=== PATIENT | male | born 1945 | race Caucasian/White ===

== ENCOUNTER 2017-01-14 23:46 | Observation (INO) | payer MEDICARE ==
[~2017-01-14] VITALS: Ht 172.7 cm; Wt 78.2 kg
[~2017-01-14 23:46] MED LIST: IBUPROFEN400 MG
[2017-01-14] MEDS ORDERED: GABAPENTIN300 MG PO (23:52)
[2017-01-14] MEDS ORDERED: IBUPROFEN200 M1 PO (23:55)
[2017-01-14] MEDS ORDERED: ACETAMINOPHEN325 M1 PO (23:56)
--- NOTE | 2017-01-15 07:31 | NUR ---
BEDSIDE REPORT RECEIVED FROM JAYNA GABRIEL. PT SLEEPING, SNORING, SPO2 94% ON 2L NC. PT SLEEPING ON COUCH IN ROOM. WILL CONTINUE TO MONITOR.
--- NOTE | 2017-01-15 08:33 | NUR ---
DR TEE WAS IN ROOM TO EVALUATE PATIENT AND DISCUSS PLAN OF CARE. PATIENT IS VERY DROWZY FROM PHENERGAN THAT WAS ADMINISTERED EARLIER BY PRINTED FORMS PROOFREADER NURSE. PATIENT RESPONDED TO STIMULATION, OPENED HIS EYES AND MOANED WHEN TAKING TO. PATIENT WENT BACK TO SLEEP. MD DISCUSS WITH ABOUT THE POSSIBLITY FOR SURGERY TODAY. MD WILL BE BACK WHEN PATIENT IS AWAKE TO EVALUATE AND DISCUSS PLAN OF CARE WITH HIM. PATIENT SAT 96% ON RA, HR 80-90. RR EVEN UNLABORED
--- NOTE | 2017-01-15 09:06 | NUR ---
PT MORNING ASSESSMENT COMPLETE. PT DROWSY FROM MEDICATION, AROUSES TO VOICE AND TOUCH. PT BOWEL TONES HYPOACTIVE X 4. PALPATED ABDOMEN, PT DOES NOT REACT OR AWAKE TO PALPATION. PT ON 2L O2 NC SPO2 93%, HR 100. IVF INFUSING IN LEFT WRIST. PT DOES NOT ANSWER QUESTIONS, IMMEDIATELY BACK TO SLEEP, SNORING. PT AND FRIENDS PRESENT IN ROOM. PT HAS CALL LIGHT AND EMESIS BAG IN REACH, WILL CONTINUE TO MONITOR.
--- NOTE | 2017-01-15 11:05 | NUR ---
IN PT'S ROOM TO CHECK ON PT. PT AROUSABLE TO VOICE AND TOUCH, PT CONTINUES TO BE DROWSY, BACK TO SLEEP IMMEDIATELY. FRIEND PRESENT IN ROOM. INSTRUCTED TO MAKE SURE PT DOES NOT GET UP WITHOUT HELP, CANDICE ARAIZA STATED THAT PT FELL ASLEEP WHILE TRYING TO GET TO TOILET, FALL RISK, BED ALARM IS SET. IVF INFUSING AT 125 ML/HR. WILL CONTINUE TO MONITOR.
--- NOTE | 2017-01-15 11:45 | NUR ---
NURSE IN ROOM
--- NOTE | 2017-01-15 11:55 | NUR ---
ANSWERED CALL LIGHT, ASSITED PT TO STAND WITH CANDICE RAI. PT DROWSY, FALLS ASLEEP WHILE STANDING, USING URINAL. PT ABLE TO VOID 150 ML URINE, CONCENTRATED. PT VIJAY HELPFUL KEEPING PT AWAKE. PT BACK TO BED, INSTRUCTED FAMILY TO USE CALL LIGHT AND FOR PT NOT TO GET UP ALONE. PT GRIMACING HE LAID DOWN, PT UNABLE TO RATE PAIN, BACK ASLEEP. WILL CONTINUE TO MONITOR.
--- NOTE | 2017-01-15 13:40 | NUR ---
PT OFF FLOOR WITH SURGERY RN.
--- NOTE | 2017-01-15 15:33 | NUR ---
01/15/17 1533 Humaira Rubio 1523 - PT ARRIVED TO PACU. NOT YET RESPONDING TO QUESTIONS. PT MAINTAINING OWN AIRWAY. NAIF DRAIN IN PLACE.
--- NOTE | 2017-01-15 16:20 | NUR ---
PT ARRIVES BACK TO MED SURG FLOOR. BEDSIDE REPORT RECEIVED FROM JAYNA VALENTINE. PT VS STABLE, WITH ELEVATED TEMPERATURE OF 99.5. PT HAS THREE LAP SITES WITH STERI STRIPS. NAIF DRAIN DRAINING SEROUS FLUID. PT NOT VERBALIZING ANY PAIN AT THIS TIME. GAVE PT MOUTH SWABS. PT AT BEDSIDE SWABBING PT MOUTH, FAMILY IN ROOM.
--- NOTE | 2017-01-15 17:08 | NUR ---
PT ASSESSMENT COMPLETE. PT ALERT, ORIENTED X 3. PT NOT VERBALIZING MUCH, ONE WORD RESPONSES TO QUESTIONS. PT STATING 0/10 PAIN AT REST. PT DENIES NAUSEA. PTS LUNGS CLEAR THROUGHOUT. PT COUGHING. PT OFFERED ICE AND REQUESTED COFFEE. DRESSING ON NAIF DRAIN CHANGED, LEAKING SEROUS FLUID. 70 ML EMPTIED FROM NAIF DRAIN. LAP SITES WITH SCANT SEROSANGUINOUS DRAINAGE. PT AT BEDSIDE, FAMILY PRESENT IN ROOM. CALL LIGHT GIVEN TO PT. D5LR INFUSING AT 125 ML/HR. PT UNABLE TO URINATE WHEN STOOD UP. PT UP TO CHAIR. WILL CONTINUE TO MONITOR.
--- NOTE | 2017-01-15 18:06 | NUR ---
LAB IN PT ROOM DRAWING BLOOD. PT TEMPERATURE 98.8 TEMPORAL AT THIS TIME. ASSISTED PT BACK TO BED. NAIF DRAIN EMPTIED, 60 ML SEROUS FLUID DRAINED. PT CRINGING HE LYES DOWN, DOES NOT STATE PAIN WHEN ASKED. AT BEDSIDE. CALL LIGHT IN REACH.
--- NOTE | 2017-01-15 18:32 | NUR ---
PT OUT OF ROOM. COMPLETED THIRD SET OF VITALS, ORAL TEMPERATURE 97.9. PT VERY DROWSY, SNORING, SPO2 94% ON 2L NC. PT AWAKES WITH TALKING AND BACK TO SLEEP. BP 129/66, HR 93. PT HAS CALL LIGHT. WILL CONTINUE TO MONITOR. PT WAS ABLE TO EAT, PUDDING, JELLO, DRINK COFFEE.
--- NOTE | 2017-01-15 18:34 | NUR ---
PT ARRIVED BACK FROM SURGERY THIS AFTERNOON AT 1620. PT HAD 3 LAP SITES WITH STERI STRIPS AND NAIF DRAIN DRAINING SEROUS FLUID. DRAIN EMPTIED X 2 WITH 70 ML AND 60 ML ON MED SURG. PT CONTINUES TO RECEIVE IVF. PT ALERT AND ORIENTED X 3. CONTINUES TO BE DROWSY, ANSWERS QUESTIONS, BUT BACK TO SLEEP. PT HAS NOT URINATED SINCE SURGERY. LUNGS CLEAR THROUGHOUT. PT ON OXYGEN BY NC AT 2L. PT HAS NOT STATED PAIN SINCE ARRIVING TO FLOOR, DENIES NAUSEA. TOLERATING FOOD WELL.
--- NOTE | 2017-01-15 19:35 | NUR ---
RECIEVED REPORT FROM DAY SHIFT NURSE. PT RESTING IN BED, AT BEDSIDE. PT VODIED ABOUT 50CC...BLADDER SCAN PERFORMED WITH PVR OF 324CC. PT DENIES NEEDS AT THIS TIME. CALL ELLIS IN REACH. IVF INFUSING W/O DIFFICULTY.
--- NOTE | 2017-01-15 19:40 | NUR ---
PT RATES PAIN 4/10 WITH MOVEMENT AND WOULD LIKE PAIN MEDICATION. 1 TAB PERCOCET ADMINISTERED. PT VOIDED ANOTHER 75CC. CALL ELLIS IN REACH.
--- NOTE | 2017-01-15 20:00 | NUR ---
rESTING IN BED QUIETLY WATCHING TV AND IS AT THE BEDSIDE.
--- NOTE | 2017-01-15 20:15 | NUR ---
PT SLEEPING. VOIDED ANOTHER 100CC. AT BEDSIDE.
--- NOTE | 2017-01-15 22:00 | NUR ---
RESTING EYES CLOSED AND RESPIRATIONS ARE EVEN IN REGULAR.
--- NOTE | 2017-01-16 00:03 | NUR ---
PATIENT RESTING QUWTLY ON HIS BACK IN BED SNORING. HIS IS SLEEPING ON THE COUCH.
--- NOTE | 2017-01-16 02:25 | NUR ---
PATIENT WAS SLEEPING WHEN WE WENT IN AT 0205 TO TAKE VITAL SIGNS, HE THEN USED THE REST ROOM AND HIS ABD PAIN HAD INCREASED FROM 3/10 TO 7/10 SO HE WAS GIVEN A PAIN PILL.
--- NOTE | 2017-01-16 04:14 | NUR ---
PATIENT RESTING QUIETLY EYES CLOSED BREATHS EVEN AND UNLABORED. DOES NOT APPEAR TO BE IN DISCMFORT.
--- NOTE | 2017-01-16 08:04 | NUR ---
PATIENT SITTING UP IN BED. IN ROOM. WHITEBOARD UPDATED. PUT OUT AM CARE ITEMS IN BATHROOM. NOT ABLE TO SHOWER YET, SO TOLD HIM TO CALL IF HE WANTED A BEDBATH OR NEEDED HELP. SAID HE WOULD AFTER BREAKFAST.
--- NOTE | 2017-01-16 08:23 | NUR ---
up in bed, eating, no c/o pain at this time, abd 3 dressing intact, beatris draining reddish drainage, ivf infusing, no c/o pain at this time. in room
--- NOTE | 2017-01-16 11:20 | NUR ---
Dr Manzo in room assessing pt
--- NOTE | 2017-01-16 12:32 | NUR ---
Pt IVF SL, ambulating hallways with one assist, tolerating well
--- NOTE | 2017-01-16 17:10 | NUR ---
Pt abd 3 surgical lap sites intact. NAIF on right side, dressing changed, slight seroussanguineous drainage, decreased sanguineous drainaje in NAIF this shift. approx 55cc since 0600 am. Abd tender, firm at lower quads and softer upper quads, HEA, burping, but stated not passing gas rectally yet. Pt on reg diet. tolerating fluids and food w/o problems, no n/v. Was medicated with Naranjito Naranjito c/o abd pain. SL at this time. Has walked around the [facility] [place] down to CCU and back several times, has tolerated well. in room. Pt continues on observation status.
--- NOTE | 2017-01-16 19:36 | NUR ---
RECIEVED REPORT FROM DAY SHIFT NURSE. PT RESTING IN BED. AT BEDSIDE. PT C/O PAIN 2/10 AT NAIF DRAIN SITE. STATES IT INCREASES WITH MOVEMENT. PT WOULD LIKE TO GO FOR A WALK WITH HIS BUT REQUESTS PAIN MEDICATION FIRST. 1 TAB PERCOCET ADMINISTERED. PT IS AWARE HE CAN HAVE ANOTHER IN 1 HOUR IF HE NEEDS IT. LAP SITES COVERED IN STERI STRIPS, NO S/S OF INFECTION. NAIF DRESSING WITH MINIMAL SHADOWING. SEROUS FLUID NOTED IN BULB. ABDOMEN DISTENDED AND FIRM. NO FLATUS AT THIS POINT. SCDS IN PLACE. PT DENIES FURTHER NEEDS. CALL ELLIS IN REACH.
--- NOTE | 2017-01-16 19:43 | NUR ---
PT UP AMBULATING HALLWAY WITH .
--- NOTE | 2017-01-16 19:45 | NUR ---
ASSESSMENT COMPLETED AT 1945 THIS EVENING. BACK CHARTED TO 0745 WHICH IS NOT ACCURATE.
--- NOTE | 2017-01-16 19:50 | NUR ---
TAUGHT PT HOW TO USE IS. DEMONSTRATED USE. PT ABLE TO REACH 1600ML.
--- NOTE | 2017-01-16 21:35 | NUR ---
PT AMBULATING HALLWAY AGAIN WITH . PT STATES STILL NO FLATUS. DENIES NEEDS.
--- NOTE | 2017-01-16 22:15 | NUR ---
PT SLEEPING. SPOUSE AT BEDSIDE. CALL ELLIS IN REACH.
--- NOTE | 2017-01-17 00:30 | NUR ---
PT C/O PAIN 5/10 IN ABD, STATES MOSTLY AT NAIF DRAIN SITE. REMOVED OLD DRESSING OVER NAIF SITE, REPLACED WITH DRAINAGE SPONGE. 1 TAB PERCOCET ADMINISTERED. NAIF DRAIN EMPTIED, URIANL EMPTIED. PT DENIES FURTHER NEEDS. CALL ELLIS IN REACH.
--- NOTE | 2017-01-17 02:10 | NUR ---
PT SLEEPING. SPOUSE AT BEDSIDE. CALL ELLIS IN REACH.
--- NOTE | 2017-01-17 02:45 | NUR ---
PT C/O PAIN 11/18 IN UPPER ABD. STATES IT FEELS LIKE GAS PAIN. 1 TAB PERCOCET ADMINISTERED. OFFERED TO AMBULATE PT. PT REFUSED AT THIS TIME. TOLD ME HE WILL AMBULATE IN A BIT AFTER THE PAIN MEDICATION STARTS TO WORK. CALL ELLIS IN REACH.
--- NOTE | 2017-01-17 03:10 | NUR ---
PT AMBULATING HALLWAY WITH JANELL HARVEY. MADE 4 LAPS AROUND MS UNIT. CANDICE REPORTS HE HAS BEEN BELCHING A LOT BUT STILL NO FLATUS.
--- NOTE | 2017-01-17 05:06 | NUR ---
PT SLEEPING EVIDENCE BY SNORING. AT BEDISDE SLEEPING. CALL ELLIS IN REACH.
--- NOTE | 2017-01-17 06:23 | NUR ---
PT HAD A GOOD NIGHT. SLEPT MOST OF THE NIGHT. C/O GAS PAIN. PERCOCET GIVEN PRN PAIN. AMBULATED 4 LAPS AROUND ROSE LAST NIGHT WITH GEM TECHNICIAN. PT STATES HE WAS ABLE TO PASS FLATUS, BUT NOT A LOT. NAIF DRAIN PT OUT 20CC BUT THROUGH TWO DRAINAGE SPONGES AND GOWN. DRESSING CHANGED THIS MORNING. SPOUSE AT BEDSIDE. VS STABLE. NO ACUTE CHANGES.
--- NOTE | 2017-01-17 08:29 | NUR ---
PT RESTING QUIETLY WITH EYES CLOSED IN BED. NAIF DRAIN HAS MINIMAL OUTPUT. IV INFILTRATED. REMOVED IV. WILL DISCUSS WITH PHYSICIAN ABOUT DISCHARGE PLAN TODAY AND IF OK TO LEAVE IV OUT. AT BEDSIDE.
[2017-01-17] MEDS ORDERED: MAPAP325 MG PO (08:43)
[2017-01-17] MEDS ORDERED: OXYCODON-ACETA1 EAC2 PO (08:44)
--- NOTE | 2017-01-17 13:30 | EKG ---
[facility] [address] [facility] [place], [place] [address] Signed Normal sinus rhythm Normal ECG When compared with ECG of 28-JAN-2016 17:42, premature ventricular complexes are no longer present Confirmed by LUIS DANIEL CHOWDHURY MD ([id number]) on 01/17/2017 1:30:03 PM Electronically Signed By: LUIS DANIEL CHOWDHURY MD 01/17/17 1330 PATIENT NAME: CAROLYN HERNANDEZ JONATHON Electrocardiogram DATE OF : 45 PHYSICIAN: LUIS DANIEL CHOWDHURY MD REPORT #: [id number] REPORT IS CONFIDENTIAL AND NOT TO BE RELEASED WITHOUT AUTHORIZATION
--- NOTE | 2017-02-11 07:48 | OR ---
[facility] [address] [place], [place] [address] Signed DATE OF PROCEDURE: 01/15/17 PREOPERATIVE DIAGNOSIS: Acute calculous cholecystitis. POSTOPERATIVE DIAGNOSIS Acute calculous gangrenous cholecystitis with gallstones. PROCEDURE Laparoscopic cholecystectomy with intraoperative cholangiogram (prolonged, complicated, difficult). Surgeon directed fluoroscopy and placement of drain. SURGEON: Zelda Tee MD. ANESTHESIA General endotracheal, Zelda Fabian CRNA and local 10 mL of 0.25% Marcaine with Epinephrine. INDICATION This 71-year-old white man was admitted in the middle of the night with severe right upper abdominal pain and workup including a CT scan to rule out perforated esophagus showed acute cholecystitis. A gallbladder ultrasound confirmed this including gallstones, pericholecystic fluid, and so on. He has been fluid resuscitated, given intravenous antibiotics, and is admitted to undergo cholecystectomy preferably by a laparoscopic approach. The risks of bleeding, infection, bile duct injury, need for open procedure, and so forth were all reviewed with him and his . They understand and wish to proceed. FINDINGS Indeed the gallbladder was tensed and distended. Upon relaxation with anesthesia, palpation of the abdomen did reveal a firm mass in the right upper abdomen. The gallbladder was markedly distended, tensed, and essentially gangrenous in portions. Cholecystectomy was prolonged, complicated, and difficult. It was accomplished safely however. The cystic duct was well identified as was as the cystic artery, both secured well. Multiple mulberry type stones were noted as the gallbladder once excised. The cholangiogram was normal. There was some oozing of blood in the liver bed, which required a fair amount of attention to include Gel-Foam and Dami and a drain was placed as well. DESCRIPTION OF PROCEDURE The patient was brought to the operating room, given a general endotracheal anesthetic. Preoperative antibiotic Ancef was given. Sequential compression device stockings used Electronically Signed By: ZELDA TEE MD 02/11/17 0748 PATIENT NAME: CAROLYN HERNANDEZ OPERATIVE REPORT DATE OF : 45 PHYSICIAN: ZELDA TEE MD REPORT #: [id number] REPORT IS CONFIDENTIAL AND NOT TO BE RELEASED WITHOUT AUTHORIZATION [facility] [address] [place], [place] [address] Signed and heparin subcutaneously administered. After satisfactory general endotracheal anesthesia, the abdomen was palpated and a firm hard mass was noted in the right upper abdomen consistent with the gallbladder. The abdomen was prepared with a Chlorhexidine solution and draped sterilely. An infraumbilical incision was made and using an open Cornelius cannula technique, pneumoperitoneum was achieved to level 14 mmHg of carbon dioxide gas. Gallbladder was obscured from view at that time as the omentum was draped over the liver. Three additional trocars were placed in usual configuration in the subxiphoid, right midclavicular, and right anterior axillary line. The omentum was unfurled from over the liver revealing a tensed, distended, and greenish appearing gallbladder that was markedly inflamed and slightly hemorrhagic. It could not be grasped. Decompression was undertaken with a needle trocar device and the puncture site grasped with the forceps. Gallbladder was elevated cephalad and retracted laterally. Considerable amount of edema of the peritoneal of the gallbladder was noted. Using blunt dissection, the infundibulum was dissected free, ultimately identifying well the cystic duct and the dominant cystic artery. Both were doubly clipped. A clip was applied to the gallbladder cystic duct junction and transverse choledochotomy made in the cystic duct. Retrograde milking of the cystic duct allowed for egress of gallbladder stone type material, but no distinct stone at that point. Using an Owens type cholangiocatheter, intraoperative cholangiography was undertaken and surgeon directed fluoroscopy. Free flow of contrast was noted into the biliary tree with prompt emptying into the duodenum. There was no sign of filling defect within the biliary tree. The cystic duct was quadruply clipped and divided and the dominant cystic artery similarly divided. The gallbladder was dissected free in a retrograde fashion. The marked inflammation and edema of the gallbladder precluded the avascular plane initially and on the right aspect of the gallbladder fossa an entry to liver parenchyma was noted. This was discontinued and the plane ultimately reestablished. The gallbladder was ultimately excised completely. Minimal spillage of stones was noted. These were gathered up and taken and upon extraction of the gallbladder, placed in an Endobag. The gallbladder was extracted through the infraumbilical port site. The gallbladder opened on the back table by the circulating nurse and found to have multiple yellow mulberry types stones and marked inflammatory changes of the mucosa, but no sign of neoplasm irrigation was undertaken of subhepatic space. Oozing of the liver bed was easily controlled with bleeding and simply time. Excess irrigation fluid was suctioned free as were any loose stone debris bead. No stones were knowingly left in the abdomen. Some Gel-Foam was obtained and placed into the raw spots of the liver. Dami was applied over this as well. Irrigation was undertaken as necessary. The abdomen was decompressed to allow for no pneumoperitoneum, waited a few minutes, and then reexamined showing good hemostasis of the area. Through a right-sided trocar site, a 7 mm flat Nahun drain was placed in the subhepatic space though there was no ongoing bleeding. Irrigation was undertaken more fully and the trocars removed under direct visualization. There was no sign of bleeding there. The infraumbilical fascial incision was Electronically Signed By: ZELDA TEE MD 02/11/17 0748 PATIENT NAME: CAROLYN HERNANDEZ OPERATIVE REPORT DATE OF : 45 PHYSICIAN: ZELDA TEE MD REPORT #: [id number] REPORT IS CONFIDENTIAL AND NOT TO BE RELEASED WITHOUT AUTHORIZATION [facility] [address] [place], [place] [address] Signed reapproximated with interrupted 0 Vicryl suture. A 3-0 Vicryl was used to close the skin. Steri-Strips were applied as was a Mepilex silver sponge dressing. The drains applied to bulb suction. The patient was taken recovery room in good condition. Blood loss was about 50 mL in aggregate. Sponge, needle, instrument counts reported as correct x3. The operation was prolonged, complicated, and difficult on the basis of extensive time for operation, certainly lasting 3 times longer than usual. MD ROQUE Saucedo/Zachery /[id number] cc: MD Mary Jones MD Electronically Signed By: ZELDA TEE MD 02/11/17 0748 PATIENT NAME: CAROLYN HERNANDEZ OPERATIVE REPORT DATE OF : 45 PHYSICIAN: ZELDA TEE MD REPORT #: [id number] REPORT IS CONFIDENTIAL AND NOT TO BE RELEASED WITHOUT AUTHORIZATION
--- NOTE | 2017-02-11 08:27 | DS ---
[facility] [address] [place], [place] [address] Signed DATE OF DISCHARGE: 01/17/17 REASON FOR ADMISSION This 71-year-old white man, presented to the emergency room at approximately midnight complaining of severe epigastric pain. This started about 8:00 p.m. Bicarbonate in water was unhelpful to him and he vomited several times. The patient has been having back pain perpetually for a number of months. His evaluation in emergency room with severe back pain as well as protracted nausea and vomiting was of concern to emergency room physician and a CT scan was ordered to assess for perforated esophagus. This showed no evidence of perforated esophagus, but did show a distended gallbladder and some gallbladder wall thickening. A subsequent ultrasound confirmed high probability of acute cholecystitis with gallstones. He is admitted for further evaluation and care. PHYSICAL EXAM GENERAL: Bearded man is sleeping deeply on my examination related to sedation with Phenergan. NECK: The trachea is midline. CHEST: Clear. HEART: Regular without murmur. ABDOMEN: Nondistended, relatively flat. There is mild tenderness and guarding in the right upper abdomen. LABORATORY STUDIES Showed a white count of 14.9, hematocrit 45.9, platelets 240,000. Chem profile, normal glucose 118, myoglobin 21.96, troponin less than 0.010. INR was 1.0. HOSPITAL COURSE The patient was directly admitted from the emergency room under my care, given fluid resuscitation. Parental antibiotics and pain medication and DVT prophylaxis. On January 15, 2017, he underwent laparoscopic cholecystectomy with intraoperative cholangiogram. The operation was prolonged, complicated, and difficult on the basis of an impressively inflamed gallbladder that showed areas of gangrene. Marked edema of the gallbladder peritoneal was noted as well. The cholangiogram was normal, however. The gallbladder once opened showed a gangrenous changes of the mucosa, multiple mulberry-shaped stones, and sludge and so on. There was a fair amount of oozing from the liver bed related to the plane of dissection for which Gelfoam and Dami was administered and a drain was placed. Postoperatively, he did well. The drain did show some bloody drainage initially, but this settled down ultimately. There was no sign of bile leak. The drain was removed prior to discharge. He had progressive improvement including tolerance of oral intake Electronically Signed By: ZELDA TEE MD 02/11/17 0827 PATIENT NAME: CAROLYN HERNANDEZ DISCHARGE SUMMARY DATE OF : 45 PHYSICIAN: ZELDA TEE MD REPORT #: [id number] REPORT IS CONFIDENTIAL AND NOT TO BE RELEASED WITHOUT AUTHORIZATION [facility] [address] [place], [place] [address] Signed including solid food. By time of discharge, he is ambulating well, tolerating a regular diet. The drain has been removed and he is feeling much better. Upon retrospect review, he realizes it much of his back pain was probably related to the gallbladder itself. DISCHARGE MEDICATIONS Include Percocet 7.5/325 one to two p.o. q.4 hours p.r.n. pain #20. No refill. Tylenol 325-mg tablets 2 tabs p.o. q.6 hours p.r.n. pain, instead of the other Percocet. Gabapentin 300 mg p.o. daily. Motrin 400 mg p.o. q.6 hours p.r.n. pain. DISCHARGE DIAGNOSES Acute calculus, gangrenous cholecystitis status post laparoscopic cholecystectomy with intraoperative cholangiogram and placement of drain, January 17, 2017. Longstanding tobacco use. Currently with oral tobacco use, discontinuance of smoking 3 years ago. 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 History of sciatica type pain. Daily alcohol use (fireball 1 glass daily). FOLLOWUP PLANS He has to return to see me in approximately 4 weeks. He is to walk on a daily basis and lift no more than 20 pounds for the next 2 weeks. Should he have any problems in the meantime, he will let me know. MD ROQUE Saucedo/Jenniferl /[id number] cc: MD Jake Mello MD Electronically Signed By: ZELDA TEE MD 02/11/17 0827 PATIENT NAME: CAROLYN HERNANDEZ DISCHARGE SUMMARY DATE OF : 45 PHYSICIAN: ZELDA TEE MD REPORT #: [id number] REPORT IS CONFIDENTIAL AND NOT TO BE RELEASED WITHOUT AUTHORIZATION
--- NOTE | 2017-02-11 08:27 | HP ---
[facility] [address] [place], [place] [address] Signed DATE OF ADMISSION: 01/15/17 REASON FOR ADMISSION: Acute calculous cholecystitis. HISTORY OF PRESENT ILLNESS This 71-year-old white man is accompanied by his . He presented to the emergency room at approximately midnight or so complaining of rather severe epigastric pain. This pain started around 8 p.m. He tried some sodium bicarbonate in water and vomited several times noting pain in his mid-chest and back, which had persisted. His tells me now that he has been having back pain for at least 4 months. He has had back injury in the past, but this pain was more in the upper back. He presented to the emergency room, was evaluated by Dr. Figueredo. Given his vomiting history and severe back pain, concern was maintained that he may have a Boerhaave syndrome. On that basis, a CT scan was performed, which showed no such finding. There were findings of distended gallbladder and some thickening. On that basis, an ultrasound was then performed confirming a thickened gallbladder wall, pericholecystic fluid, sludge in the gallbladder and gallstones. Became clear that his problem was really that of acute cholecystitis. He is admitted for further evaluation and care. Other findings noted on the CT scan included bilateral thyroid nodules up to 2.1 cm in size, central lobular emphysema and diverticulosis without diverticulitis. PAST MEDICAL HISTORY Does include persistent alcohol use, drinks 1 drink of Fireball whiskey nightly. This is a combination of whisky and cinnamon. Additionally, he has had a back pain problem in the past. CURRENT MEDICATIONS At admission include Gabapentin 300 mg p.o. daily, Motrin 400 mg p.r.n. pain and Tylenol 325 mg p.r.n. pain. SOCIAL HISTORY He is accompanied by his . He moved to the [place], [place] area from [place], [place] about 11 years ago. He is retired, previously working in construction of aviles. Notably, he did not really drink alcohol on a routine basis until 4 months ago when he was introduced to this type of whiskey. He is a former smoker. ALLERGIES: He has no known drug allergies. PAST SURGICAL HISTORY Electronically Signed By: ZELDA TEE MD 02/11/17 0827 PATIENT NAME: CAROLYN HERNANDEZ HISTORY AND PHYSICAL DATE OF : 45 PHYSICIAN: ZELDA TEE MD REPORT #: [id number] REPORT IS CONFIDENTIAL AND NOT TO BE RELEASED WITHOUT AUTHORIZATION [facility] [address] [place], [place] [address] Signed Does include bilateral shoulder arthroscopic operations and right calcaneal surgery of some type. Underlying medical history includes COPD, back pain and neck pain. REVIEW OF SYSTEMS The patient is a bit too sedated related to Phenergan that was given for nausea to answer adequately, but in general terms has no complaint other than right upper abdominal pain. PHYSICAL EXAMINATION GENERAL: This is a man who is sleeping deeply, was arousable, but not with lengthy coherent discussion. His was present throughout. He appears to be sedated related to the Phenergan that was given for his intractable vomiting. He was additionally treated with Zofran prior to that. NECK: His trachea is midline. He has no carotid bruit. I detect no palpable thyroid. CHEST: Clear. HEART: Regular without murmur. ABDOMEN: Nondistended, relatively flat. There is mild tenderness and guarding in the right upper abdomen, but no mass. EXTREMITIES: Show no clubbing, cyanosis, or edema. LABORATORY DATA Show a white count of 14.9, hematocrit 45.9, platelets 340,000. Chem profile essentially normal. Glucose 118, myoglobin 21.96. Troponin less than 0.010. Coag studies are normal with protime of 13.1, INR 1.0. Regarding imaging studies, the reports have been reviewed and selected images also reviewed, showing considerable shadowing of the gallbladder, thought to be consistent with gallstones within the gallbladder. The gallbladder has a somewhat shaggy appearance of the mucosa. ASSESSMENT The patient has acute calculous cholecystitis. He is really too profoundly sedated right now to legitimately describe the risks and benefits of operation to the patient personally. I exhaustively reviewed them with his , who attends to him. Those include bleeding, infection, bile duct injury, need for open procedure, failure to cure the problem, and need for other indicated procedures. I will wait until he is less sedated to review this information with him. In the meantime, we will provide a gallbladder sleeve presser operator's manual to review when his sedation wears off a bit. We would anticipate surgery today, likely in the early afternoon. He will be maintained with IV antibiotic Ancef, prophylaxis against DVT, ulcer prophylaxis with Pepcid and parental pain medication as needed. He will be maintained in n.p.o. status. Electronically Signed By: ZELDA TEE MD 02/11/17 0827 PATIENT NAME: CAROLYN HERNANDEZ HISTORY AND PHYSICAL DATE OF : 45 PHYSICIAN: ZELDA TEE MD REPORT #: [id number] REPORT IS CONFIDENTIAL AND NOT TO BE RELEASED WITHOUT AUTHORIZATION [facility] [address] [place] [address] Signed MD ROQUE Saucedo/Zachery /[id number] cc: MD Mary Jones MD Electronically Signed By: ZELDA TEE MD 02/11/17 0827 PATIENT NAME: CAROLYN HERNANDEZ HISTORY AND PHYSICAL DATE OF : 45 PHYSICIAN: ZELDA TEE MD REPORT #: [id number] REPORT IS CONFIDENTIAL AND NOT TO BE RELEASED WITHOUT AUTHORIZATION
== END 2017-01-17 09:50 | disposition home or self-care (01) ==
LOC: ED 23:46 → MS 23:47
PROVIDERS: ADMIT Surgery
PROC: BF101ZZ Fluoroscopy of Bile Ducts using Low Osmolar Contrast (ICD-10-PCS; 2017-01-15)
PROC: 0FT44ZZ Resection of Gallbladder, Percutaneous Endoscopic Approach (ICD-10-PCS; principal; 2017-01-15 13:02)
DX: K80.00 Calculus of gallbladder with acute cholecystitis without obstruction (principal); J44.9 Chronic obstructive pulmonary disease, unspecified; G89.29 Other chronic pain; Z87.891 Personal history of nicotine dependence; Z79.1 Long term (current) use of non-steroidal anti-inflammatories (NSAID); Z79.899 Other long term (current) drug therapy; Z98.61 Coronary angioplasty status
CPT/HCPCS: 00790; 36415; 51798; 71010; 71260; 74177; 74300; 76705; 80053; 82150; 82248; 82550; 82553; 83690; 83874; 84075; 84484; 85014; 85025; 85049; 85610; 85730; 88304; 93005; 93010; 96361; 96372; 96374; 96375; 96376; 99285; G0378; J0330; J0690; J1100; J1170; J1644; J1885; J2250; J2270; J2405; J2550; J2704; J2710; J2765; J3010; J7120; Q9967

== ENCOUNTER 2017-03-23 11:45 | Emergency (ER) | payer MEDICARE ==
[~2017-03-23] VITALS: Ht 172.7 cm; Wt 77.1 kg
[~2017-03-23 11:45] MED LIST changes: +ACETAMINOPHEN325 M1 PO; +GABAPENTIN300 MG PO; +IBUPROFEN200 M1 PO; +MAPAP325 MG PO; +OXYCODON-ACETA1 EAC2 PO
--- NOTE | 2017-03-23 14:48 | EKG ---
[facility] [address] [facility] [place] [address] Signed Sinus tachycardia with frequent premature ventricular complexes and fusion complexes Nonspecific ST abnormality Abnormal ECG When compared with ECG of 15-JAN-2017 00:00, fusion complexes are now present premature ventricular complexes are now present Confirmed by UVALDO PATEL MD ([id number]) on 03/23/2017 2:48:12 PM Electronically Signed By: UVALDO PATEL MD 03/23/17 1448 PATIENT NAME: CAROLYN HERNANDEZ Electrocardiogram DATE OF : 45 PHYSICIAN: UVALDO PATEL MD REPORT #: [id number] REPORT IS CONFIDENTIAL AND NOT TO BE RELEASED WITHOUT AUTHORIZATION
[2017-03-23] MEDS ORDERED: PREDNISONE20 MG PO (15:45)
[2017-03-23] MEDS ORDERED: VENTOLIN HFA18 GM INH (15:45)
[2017-03-23] MEDS ORDERED: ZITHROMAX250 MG PO (15:45)
== END 2017-03-23 16:18 | disposition home or self-care (01) ==
LOC: ED 11:45
DX: J44.9 Chronic obstructive pulmonary disease, unspecified (principal); D72.829 Elevated white blood cell count, unspecified; Z87.891 Personal history of nicotine dependence; Z79.899 Other long term (current) drug therapy
CPT/HCPCS: 36415; 71020; 80053; 81001; 83605; 84484; 85025; 85379; 87040; 87502; 93005; 93010; 94640; 96374; 99284; J0696; J7512

== ENCOUNTER 2017-06-08 10:51 | Day surgery (SDC) | payer MEDICARE ==
[~2017-06-08] VITALS: Ht 172.7 cm; Wt 78.9 kg
[~2017-06-08 10:51] MED LIST changes: +ASPIR 8181 MG PO; +FLOMAX0.4 MG PO; +MULTIVITAMINS1 EAC7 PO; +PREDNISONE20 MG PO; +VENTOLIN HFA18 GM INH; +ZITHROMAX250 MG PO
--- NOTE | 2017-06-08 12:45 | NUR ---
06/08/17 1245 Deanna Lou 1229 RESP EVEN AND UNLABORED. 1235 O2 SAT DECREASING, PT ENCOURAGED TO DEEP BREATH AND PT TURNED TO RIGHT LATERAL SIDE. BACK TO SLEEP. O2 INCREASED TO 4L VIA NC. 1242 PT SLEEPING, WOKE UP OFF AND ON AND ENCOURAGED TO DEEP BREATH.
== END 2017-06-08 13:30 | disposition home or self-care (01) ==
LOC: OPS 10:51 → DS 10:51 → OPS 12:00
PROVIDERS: Specialist
PROC: 079T3ZX Drainage of Bone Marrow, Percutaneous Approach, Diagnostic (ICD-10-PCS; 2017-06-08)
PROC: 07DR3ZX Extraction of Iliac Bone Marrow, Percutaneous Approach, Diagnostic (ICD-10-PCS; principal; 2017-06-08 12:00)
DX: D47.1 Chronic myeloproliferative disease (principal); D75.1 Secondary polycythemia; F17.220 Nicotine dependence, chewing tobacco, uncomplicated; J44.9 Chronic obstructive pulmonary disease, unspecified; M54.30 Sciatica, unspecified side; Z90.49 Acquired absence of other specified parts of digestive tract; Z79.2 Long term (current) use of antibiotics; Z79.52 Long term (current) use of systemic steroids; Z79.82 Long term (current) use of aspirin; Z79.899 Other long term (current) drug therapy
CPT/HCPCS: 85025; 99152; 99153; J2250; J3010; J7120

== ENCOUNTER 2017-07-07 10:04 | Inpatient (IN) | payer MEDICARE ==
[~2017-07-07] VITALS: Ht 172.7 cm; Wt 80.3 kg
[2017-07-07] MEDS ORDERED: SYMBICORT 16010.2 GM INH (15:16)
[2017-07-07] MEDS ORDERED: VENTOLIN HFA18 GM INH (15:17)
--- NOTE | 2017-07-07 15:55 | NUR ---
PATIENT TO FLOOR VIA STRETCHER. TRANSFER TO BED WITH NO DIFFICULTY. VS TAKEN STABLE. PATIENT IS A LITTLE TACHY. DENIES PAIN. OCCASIONAL HACKING COUGH. NO FEVER. NEW IV SITE ESTABLISHED. PATIENT TOLERATED WELL. IV BOLUS INFUSING AND ABX ADMINISTERED. ADMISSION ASSESSMENT DONE. LUNGS SOUND CLEAR, DIM AND COARSE IN THE BASES. CALL LIGHT IN REACH, AT BEDSIDE.
--- NOTE | 2017-07-07 16:15 | NUR ---
THIS USED CAR MAKE READY WORKER ORDERED A SNADWICH AND JUICE FOR PATIENT PER JAYNA DANIELSON. CALL LIGHT IN REACH.
--- NOTE | 2017-07-07 16:18 | NUR ---
ASSISTED PATIENT TO BATHROOM, THEN BACK TO BE BED. PATIENT REPORT MILD SOB. SECOND BOLUS STARTED. PATIENT REQUESTED COFFEE, COFFEE GIVEN. NO OTHER NEEDS. CALL LIGHT IN REACH.
--- NOTE | 2017-07-07 17:15 | NUR ---
MED REC COMPLETE WITH DR TEAGUE MEDICATION LIST.
--- NOTE | 2017-07-07 17:53 | NUR ---
PATIENT SITTING ON EDGE OF BED EATING DESSERT. VITALS DONE, PULSE IS 107, JAYNA DANIELSON NOTIFIED. CALL LIGHT IN REACH. NO OHTER NEEDS
--- NOTE | 2017-07-07 18:05 | NUR ---
PATIENT SITTING IN BED EATING DINNER. NO COMPLAINTS. WILL CONTINUE TO MONITOR.
--- NOTE | 2017-07-07 19:05 | NUR ---
PATIENT HAD AN UNEVENTFUL EVENING. EAT MOST OF HIS MEAL. HAD 2000ML BOLUS. IV ABX. PATIENT IS A&O. DENIES PAIN. HARSH COUGH. SOB WITH ACTIVITY. CONTINUE PULSE OX. O2 PRN. NO FEVER. NEW IV SITE ESTABLISHED. ACTIVE BOWEL TONES.
--- NOTE | 2017-07-07 19:15 | NUR ---
SHIFT REPORT RECEIVED. PATIENT IS RESTING IN BED. HE REQUEST A NEB TREATMENT, RT NOTIFIED. HIS OS SAT IS 96% ON 0.5 L NC. HE DENIES ANY NEEDS AT THIS TIME. CALL LIGHT IN REACH.
--- NOTE | 2017-07-07 21:00 | NUR ---
EVENING MEDS GIVEN PER ORDER. PATIENT IS RESTING IN BED, HIS AT THE BEDSIDE. PATIENT STATES HE FEELS MUCH BETTER THAN HE DID THIS MORNING. HE REPORTS SOME SOB, BUT NOTHING WORSE THAN HIS NORMAL. HE REPORTS SOME CHEST PAIN WITH EXPIRATION, STATES THIS HAS BEEN THERE SEVERAL MONTHS BUT WORSE IN THE LAST FEW WEEKS. CURRENTLY TOLERATING ROOM AIR AT 95%, BUT REQUEST 1L NC WHILE IN BED FOR COMFORT. LUNG SOUNDS ARE CLEAR IN UPPER LOBES BILATERALLY, WITH DIMINISHED COARSE SOUNDS IN THE BASES. ABD IS MILDLY DISTENDED, PATIENT STATES THIS IS NORMAL. BOWEL SOUNDS CATIVE, NO GI CONCERNS. CMS IS INTACT. IV FLUIDS RUNNING PER ORDER, SITE WNL. PATIENT DENIES NEEDS AT THIS TIME.
--- NOTE | 2017-07-07 21:12 | NUR ---
Rounding charge nurse note: Continues on droplet isolation. Awake, no c/o pain or requests at this time, watching tv
--- NOTE | 2017-07-07 22:49 | NUR ---
PATIENT UP WALKING IN THE HALLS WITH HIS .
--- NOTE | 2017-07-07 23:05 | NUR ---
PATIENT RESTING IN BED. DENIES ANY NEEDS AT THIS TIME. IS AT BEDSIDE, BEDDING PROVIDED. PATIENT URNAL EMPTIED. FRESH ICE WATER PROVIDED.
--- NOTE | 2017-07-08 01:45 | NUR ---
VS COMPLETED. PATIENT UP TO THE BATHROOM. APPEARS STEADY ON HIS FEET. OUTPUT QS. PATIENT'S BREATHING SOUNDS LABORED AND HIS VOICE IS WEAKER THEN IT WAS AT START OF SHIFT. HE IS REQUESTING COUGH DROPS OR COUGH SYRUP TO SOOTHE HIS THROAT. WILL SPEAK WITH HOSPITALIST. PATIENT'S LUNGS ARE CLEAR, DIMINISHED IN THE BASES. TOLERATING ROOM AIR, 95% O2 SAT. IV FLUIDS INFUSING PER ORDER, SITE WNL. PATIENT DENIES NEEDS.
--- NOTE | 2017-07-08 05:36 | NUR ---
PATIENT SLEPT ON AND OFF THROUGHOUT THE NIGHT. HIS STAYED WITH HIM AND THEY WERE UP A FEW TIMES HAVING SNACKS. PATIENT IS TOLERATING ROOM AIR. CONTINUES TO FEEL SOB, ESPECIALLY WITH AMBULATION. LUNGS ARE COARSE AND PRODUCTIVE COUGH. PATIENT'S VOICE HAS BECOME VERY HOARSE THROUGHOUT THE SHIFT. PATIENT'S APPETITE IS ADEQUATE AND ORAL INTAKE IS GOOD. IV FLUIDS INFUSING, SITE WNL. SBA TO BATHROOM.
--- NOTE | 2017-07-08 07:33 | NUR ---
REPORT RECEIVED FROM BALDO. PATIENT APPEARS TO BE SLEEPING AT THIS TIME. RR EVEN/UNLABORED. O2 SAT 95% ON ROOM AND HR 89. NO APPARENT DISTRESS. AT BEDSIDE.
--- NOTE | 2017-07-08 08:20 | NUR ---
PATIENT SITTING IN BED, DENIES PAIN AT THIS TIME. SHIFT ASSESSMENT DONE. PATIENT REPORT HOARSENESS AND SORE TRHOAT. MILD SOB WITH AMBULATION. IV SITE PATENT AND FLUID INFUSING. LUNGS CLEAR AND DIM IN THE BASES. PATIENT IS ON ROOM AIR AT THIS TIME AND SAT @ 96%. PATIENT EAT 90% OF HIS MEAL. NO ACUTE DISTRESS. CALL LIGHT IN REACH. AT BEDSIDE.
--- NOTE | 2017-07-08 10:24 | NUR ---
PATIENT WATCHING TV IN BED, IN ROOM. VITALS ALEXYS/OS DONE. PATIEST REQUESTED SOME VEASELINE TO USE IN HIS HAIR "HAS USED IT FOR 40 YEARS" WOULD LIKE TO SEE DR BEFORE SHOWERING THIS MORNING. CALL LIGHT IN REACH.
[2017-07-08] MEDS ORDERED: CLOBETASOL PROP15 G1 TOP (10:25)
[2017-07-08] MEDS ORDERED: FLONASE ALLERG9.9 ML NAS (10:27)
--- NOTE | 2017-07-08 10:40 | NUR ---
PATIENT RESTING IN BED. DENIES PAIN. REPORTED THAT HE IS FEELING BETTER. LESS COUGHING. REPORTED THAT HIS CHEST THIGHTNESS IDS BETTER WITH THE NEBULIZER TREATMENT. CALL LIGHT IN REACH. PATIENT WANTED TO SHOWER LATER. AT BEDSIDE.
--- NOTE | 2017-07-08 12:56 | NUR ---
PATIENT WAS UP WALKING IN THE HALLWAY. BACK TO ROOM AND SITTING IN THE CHAIR. PATIENT REPORTS 8/10 PAIN AT THE INCISION SITE. PATIENT WAS MEDICATED. EATING LUNCH AT THIS TIME. WILL CONTINUE TO MONITOR. CALL LIGHT IN REACH.
--- NOTE | 2017-07-08 13:03 | NUR ---
PATIENT SITTING IN BED EATING LUNCH. PATIENT REPORTS CHEST/ABD PAIN WITH COUGHING, PAIN DOES RADIATING. NO SOB AT THIS TIME. NO NAUSEA. CALLL LIGHT IN REACH AND WILL CONTINUE TO MONITOR PATIENT.
--- NOTE | 2017-07-08 13:54 | NUR ---
PATIENT RESTING IN ITZEL AT THIS TIME, EYES CLOSED. RR EVEN AND UNLABORED. O2 SAT 93% ON ROOM AIR AND HR 99BPM. NO APPARENT DISTRESS. AT BEDSIDE. IV ABX INFUSING. CALL LIGHT IN REACH. WILL CONTINUE TO MONITOR.
--- NOTE | 2017-07-08 15:25 | NUR ---
DR PATEL WAS IN ROOM TO EVALUATE PATIENT. ALL QUESTIONS ANSWERED. SALINE LOCKED PATIENT FOR SHOWER. IN ROOM.
--- NOTE | 2017-07-08 16:00 | NUR ---
PATIENT AMBULATING IN ROSE WITH . LINENS CHANGED. FRESH ICEWATER. RN ERUM IN RM RT IN FOR BREATHING TREATMENT. CALL LIGHT IN REACH.
--- NOTE | 2017-07-08 17:45 | NUR ---
PATIENT RESTING IN BED AT THIS TIME. APPEARS TO BE SLEEPING. RR EVEN, HR 100 AND O2 SAT 96 PER PULSE OXYMETER.
--- NOTE | 2017-07-08 18:45 | NUR ---
PATIENT HAD WELL TODAY. AMBULATED TWICE. HAD SHOWER. LUNGS SOUND IMPROVED. PATIENT IS ON RA. IV ABX. FLUID DECREASED TO 75ML/HR. VOID QS. MAY DC TOMORROW.
[2017-07-08] MEDS ORDERED: TAMIFLU75 MG PO (19:00)
[2017-07-08] MEDS ORDERED: CEFPODOXIME PR200 MG PO (19:00)
--- NOTE | 2017-07-08 19:15 | NUR ---
shift report received. patient resting in bed. tolerating room air, 96% o2 sat. patient reports coughing and soreness in his abd from the strain of frequent coughing. he is going to get up for a walk.
--- NOTE | 2017-07-08 19:47 | NUR ---
patient up walking in hallway with his mask on and his by his side. he appears steady.
--- NOTE | 2017-07-08 21:30 | NUR ---
PATIENT ASSESSMENT COMPLETED. PATIENT IS AAOX4. HIS VOICE SOUNDS LESS HOARSE THAN THIS MORNING. CONTINUES TO HAVE A HARSH COUGH. TOLERATING ROOM AIR, O2 SAT 97%. LUNGS ARE CLEAR IN UPPER LOBES BILATERALLY BUT COARSE IN THE BASES. ENCOURAGED ORAL INTAKE AND USE OF CPT. ABD IS MILDLY DISTENDED. PATIENT REPORTS MUSCLE PAIN WITH COUGHING AND PALPATION. BOWEL SOUNDS ARE HYPOACTIVE IN RUQ & LUQ, ACTIVE IN LLQ & RLQ. PATIENT REPORTS POOR APPETITE TODAY DUE TO INCREASED ABD PAIN WITH EATING. HE STATES THIS HAS BEEN AN ON GOING ISSUE FOR MONTHS BUT HAS BEEN MADE WORSE DURING CURRENT ILLNESS. PATIENT REPORTS NORMAL BM TODAY. IV LFUIDS INFUSING PER ORDER. PRN TYLENOL PROVIDED FOR PAIN. NO OTHER NEEDS AT THIS TIME.
--- NOTE | 2017-07-08 21:43 | NUR ---
Charge nurse rounding note: Continues on droplet isolation. Walked hallways earlier with . Pt reminded to wear mask when walking out in hallways to prevent spreading influenza germs, stated understanding and placed mask in face. No c/o sob. IVF infusing w/o problems. ocassional cough present,
--- NOTE | 2017-07-08 22:10 | NUR ---
DUE TO PATIENT'S AND THIS RN CONCERN ABOUT HIS ABD PAIN & ASSESSMENT. I CALLED AND PRESENTED THE ASSESSMENT FINDINGS AND HISTORY OF THESE CONCERNS. NO NEW ORDERS.
--- NOTE | 2017-07-09 00:48 | NUR ---
PATIENT REQUESTED ASSISTANCE FROM RN. STATED HE HAS BEEN COUGHING MORE THAN HE HAD BEEN, NOT ABLE TO GET ANY SPUTUM TO COME UP. THIS COUGHING HAS CAUSED HIS HEAD TO HURT, 7/10 PAIN. OFFERED WARM BLANKET, HOT TEA, REPOSITIONING, ETC. PATIENT DECLINES THESE OFFERS. ASSISTED PATIENT UP TO THE BATHROOM. HE WAS UNABLE TO VOID. PATIENT STATES HE FEELS FEVERISH AND HAS THE CHILLS. PATIENT HAS BEEN DRINKING ICE WATER, AXILLARY TEMP IS 97.8F. PRN TYLENOL AVIALBLE IN ONE HOUR, PATIENT WILL ATTEMPT TO REST. WILL REASSESS AT THAT TIME.
--- NOTE | 2017-07-09 01:35 | NUR ---
PATIENT RESTING IN BED. DENIES TYLENOL AT THIS TIME. STATES "I THINK I'LL BE ABLE TO NOD OFF NOW". ENCOURAGED PATIENT TO CALL IF HE HAS ANY NEEDS.
--- NOTE | 2017-07-09 02:22 | NUR ---
SPOKE WITH ABOUT PATIENT'S LOW URINE OUTPUT. NO NEW ORDERS.
--- NOTE | 2017-07-09 05:49 | NUR ---
PATIENT HAD DIFFICULTY SLEEPING THROUGHOUT THE NIGHT. PAIN IN ABD AND COUGHING MADE REST DIFFICULT. 1 PRN TYLENOL PROVIDED, PATIENT DENIED NEEDING ANY FURTHER DOSES. LUNGS ARE CLEAR IN UPPER LOBES, COARSE IN THE BASES. TOLERATING ROOM AIR. URINE OUTPUT HAS BEEN LOW, MD AWARE. ORAL INTAKE HAS BEEN POOR DUE TO UPSET STOMACH. ABD HAS BEEN MILDLY DISTENDED AND PATIENT REPORTS BLOATING. IV FLUIDS INFUSING PER ORDER.
--- NOTE | 2017-07-09 07:35 | NUR ---
BEDSIDE SHIFT REPORT RECEIVED FROM BALDO DORANTES. WHITE BOARD UPDATED. PATIENT IN BED LYING FLAT. REPORTS 8/10 PAIN FROM HEADACHE. TYLENOL ADMINISTERED AT 0715. WATER CUP FILLED PER REQUEST. LIGHTS DIMMED. PATIENT HAS NO OTHER REQUESTS AT THIS TIME. IVF INFUSING INTO LW. ISOLATION PERCAUTIONS IN PLACE FOR DROPLET.
--- NOTE | 2017-07-09 07:58 | NUR ---
BREAKFAST DELIVERED TO ROOM. PATIENT REPORTS LACK OF SLEEP AND WANTING TO SLEEP TODAY. AT BEDSIDE ASSISTING PATIENT TO AND FROM BATHROOM. TOOK SCHEDULED MEDS ORDERED. RESPIRATORY THERAPIST EXPECTED FOR SCHEDULED BREATHING TREATMENT.
== END 2017-07-09 13:30 | disposition home or self-care (01) | DRG 194 ==
LOC: ED 10:04 → MS 13:44
PROVIDERS: ADMIT Internal Medicine
DX: J11.08 Influenza due to unidentified influenza virus with specified pneumonia (principal); J44.0 Chronic obstructive pulmonary disease with (acute) lower respiratory infection; J15.4 Pneumonia due to other streptococci; N40.0 Benign prostatic hyperplasia without lower urinary tract symptoms; Z77.090 Contact with and (suspected) exposure to asbestos; Z87.891 Personal history of nicotine dependence; Z79.1 Long term (current) use of non-steroidal anti-inflammatories (NSAID); Z79.82 Long term (current) use of aspirin; Z79.899 Other long term (current) drug therapy
CPT/HCPCS: 36415; 71046; 80048; 80053; 82150; 83605; 83690; 83735; 85025; 87040; 87502; 94640; 94667; 94668; 94762; 99406; J0456; J0696; J1650; J2930; J7050; J7120

== ENCOUNTER 2017-08-15 19:43 | Emergency (ER) | payer MEDICARE ==
[~2017-08-15] VITALS: Ht 172.7 cm; Wt 80.3 kg
[~2017-08-15 19:43] MED LIST changes: +CEFPODOXIME PR200 MG PO; +CLOBETASOL PROP15 G1 TOP; +FLONASE ALLERG9.9 ML NAS; +SYMBICORT 16010.2 GM INH; +TAMIFLU75 MG PO
[2017-08-15] MEDS ORDERED: FUROSEMIDE20 MG PO (20:03)
[2017-08-15] MEDS ORDERED: ELIQUIS5 MG PO (23:31)
[2017-08-15] MEDS ORDERED: PERCOCET 5-3251 EACH PO (23:31)
--- NOTE | 2017-08-16 08:07 | EKG ---
[facility] [address] [facility] [place] [address] Signed Sinus rhythm with frequent premature ventricular complexes Possible Left atrial enlargement Nonspecific T wave abnormality Prolonged QT Abnormal ECG When compared with ECG of 23-MAR-2017 11:51, fusion complexes are no longer present Nonspecific T wave abnormality now evident in Anterior leads Confirmed by LUIS DANIEL CHOWDHURY MD ([id number]) on 08/16/2017 8:06:54 AM Electronically Signed By: LUIS DANIEL CHOWDHURY MD 08/16/17 0807 PATIENT NAME: CAROLYN HERNANDEZ Electrocardiogram DATE OF : 45 PHYSICIAN: LUIS DANIEL CHOWDHURY MD REPORT #: [id number] REPORT IS CONFIDENTIAL AND NOT TO BE RELEASED WITHOUT AUTHORIZATION
== END 2017-08-15 23:54 | disposition home or self-care (01) ==
LOC: ED 19:43
DX: I26.99 Other pulmonary embolism without acute cor pulmonale (principal); J44.9 Chronic obstructive pulmonary disease, unspecified; Z87.891 Personal history of nicotine dependence; Z79.899 Other long term (current) drug therapy; Z79.82 Long term (current) use of aspirin
CPT/HCPCS: 71045; 71260; 80053; 83735; 83880; 84484; 85025; 85379; 93005; 93010; 96372; 96374; 96375; 99284; J1650; J2270; J2405; Q9967

== ENCOUNTER 2017-09-11 20:02 | Emergency (ER) | payer MEDICARE ==
[~2017-09-11] VITALS: Ht 172.7 cm; Wt 77.1 kg
[~2017-09-11 20:02] MED LIST changes: +ELIQUIS5 MG PO; +FUROSEMIDE20 MG PO; +PERCOCET 5-3251 EACH PO
[2017-09-11] MEDS ORDERED: ELIQUIS5 MG PO (20:14)
[2017-09-11] MEDS ORDERED: FINASTERIDE5 MG PO (20:16)
[2017-09-11] MEDS ORDERED: POTASSIUM CHLO10 ME1 PO (20:17)
[2017-09-11] MEDS ORDERED: ROPINIROLE HC0.25 MG PO (20:17)
[2017-09-11] MEDS ORDERED: METOPROLOL SUCC25 MG PO (20:18)
--- NOTE | 2017-09-11 21:58 | EKG ---
[facility] [address] [facility] [place] [address] Signed Normal sinus rhythm Nonspecific intraventricular conduction delay Nonspecific ST and T wave abnormality Abnormal ECG When compared with ECG of 15-AUG-2017 19:51, premature ventricular complexes are no longer present Confirmed by UVALDO PATEL MD ([id number]) on 09/11/2017 9:58:24 PM Electronically Signed By: UVALDO PATEL MD 09/11/17 2158 PATIENT NAME: CAROLYN HERNANDEZ Electrocardiogram DATE OF : 45 PHYSICIAN: UVALDO PATEL MD REPORT #: [id number] REPORT IS CONFIDENTIAL AND NOT TO BE RELEASED WITHOUT AUTHORIZATION
== END 2017-09-12 00:19 | disposition home or self-care (01) ==
LOC: ED 20:02
DX: R10.10 Upper abdominal pain, unspecified (principal); R06.02 Shortness of breath; I50.9 Heart failure, unspecified; Z87.891 Personal history of nicotine dependence; Z79.899 Other long term (current) drug therapy
CPT/HCPCS: 71046; 71260; 74177; 80053; 81001; 83690; 83880; 84484; 85025; 85379; 85610; 85730; 93005; 93010; 99284; Q9967

== ENCOUNTER 2017-11-13 12:21 | Emergency (ER) | payer MEDICARE ==
[~2017-11-13] VITALS: Ht 172.7 cm; Wt 70.8 kg
[~2017-11-13 12:21] MED LIST changes: +FINASTERIDE5 MG PO; +METOPROLOL SUCC25 MG PO; +POTASSIUM CHLO10 ME1 PO; +ROPINIROLE HC0.25 MG PO
[2017-11-13] MEDS ORDERED: LISINOPRIL5 MG PO (12:32)
--- NOTE | 2017-11-13 19:50 | EKG ---
[facility] [address] [facility] [place] [address] Signed Normal sinus rhythm Incomplete left bundle branch block Borderline ECG When compared with ECG of 11-SEP-2017 20:22, Incomplete left bundle branch block has replaced Nonspecific intraventricular conduction delay T wave inversion no longer evident in Anterior leads Confirmed by UVALDO PATEL MD ([id number]) on 11/13/2017 7:49:47 PM Electronically Signed By: UVALDO PATEL MD 11/13/17 1950 PATIENT NAME: MARYCAROLYN JONATHON Electrocardiogram DATE OF : 45 PHYSICIAN: UVALDO PATEL MD REPORT #: [id number] REPORT IS CONFIDENTIAL AND NOT TO BE RELEASED WITHOUT AUTHORIZATION
== END 2017-11-13 13:59 | disposition home or self-care (01) ==
LOC: ED 12:21
DX: R07.89 Other chest pain (principal); I50.9 Heart failure, unspecified; Z87.891 Personal history of nicotine dependence; Z79.899 Other long term (current) drug therapy
CPT/HCPCS: 71046; 80053; 84484; 85025; 93005; 93010; 99285

== ENCOUNTER 2018-09-22 00:52 | Emergency (ER) | payer MEDICARE ==
[~2018-09-22] VITALS: Ht 172.7 cm; Wt 70.8 kg
[~2018-09-22 00:52] MED LIST changes: +LISINOPRIL5 MG PO
--- OUTSIDE RECORDS SUMMARY | 2018-09-22 00:54 | XMS ---
PreManage Notification: CAROLYN HERNANDEZ Security Efficiency Miner Events No recent Security Events currently on file CRITERIA MET - [facility] - Has Care Guidelines CARE PROVIDERS IBETH TEAGUE [facility] 02/13/2018-Current PHONE: [phone] DR IBETH TEAGUE Primary Care Current PHONE: [phone] Anthony has no Care Guidelines for this patient. Care History Medical/Surgical 09/12/2017 [facility] - W spoke to patient PCP office who stated patient has an apt with Dr Manzo on September 27 for stomach bloating issues/concerns. - Patient is also working with Dru at [facility] thru Pulmonary Rehab program. Care Recommendation: This patient has had 5 or more Emergency Department visits in the last 12 months. Patient requires education on the scope and purpose of the ED as an acute care provider not a Primary Care Provider and should not be utilized for chronic conditions. If patient returns to ED please contact Community Health Worker[facility] at [phone]. These are guidelines and the provider should exercise clinical judgment when providing care. [place] VISIT COUNT (12 MO.) [address] [facility] 2 [facility] [place] TOTAL 3 NOTE: Visits indicate total known visits. ED/UCC VISIT TRACKING (12 MO.) 09/22/2018 00:53 [place] [place] TYPE: Emergency COMPLAINT: - CHEST TIGHTNESS, LEFT SHOULDER PAIN NON INJURY 12/01/2017 18:13 [facility] TYPE: Emergency DIAGNOSES: - Rectal Bleeding - Hypotension 11/13/2017 12:22 [facility] [place] TYPE: Emergency COMPLAINT: - CHEST PAIN DIAGNOSES: - Heart failure, unspecified - Other halfway (current) drug therapy - Other chest pain - Personal history of nicotine dependence - Chest pain, unspecified INPATIENT VISIT TRACKING (12 MO.) [facility] [facility] DIAGNOSES: - Nonrheumatic mitral (valve) insufficiency - Personal history of pulmonary embolism - Other general symptoms and signs - Hyperglycemia, unspecified - Chronic obstructive pulmonary disease, unspecified - Shortness of breath - Other specified postprocedural states - Pulmonary hypertension, unspecified - Cardiomyopathy, unspecified 12/01/2017 18:13 [facility] [place] TYPE: General Medicine DIAGNOSES: - Rectal Bleeding - Melena - Gastrointestinal hemorrhage, unspecified - Hypotension 10/03/2017 17:02 [facility] [place] TYPE: Cardiology DIAGNOSES: - Severe mitral regurgitation - Acute systolic heart failure - Recent pulmonary embolism - Illness, unspecified [email or web address]
[2018-09-22] MEDS ORDERED: METOPROLOL SUCC25 MG PO (01:07)
[2018-09-22] MEDS ORDERED: NEURONTIN300 MG PO (01:08)
--- NOTE | 2018-09-22 08:19 | EKG ---
[facility] [address] [facility] [place] [address] Signed Normal sinus rhythm Left axis deviation Nonspecific intraventricular block Abnormal ECG No previous ECGs available Confirmed by LUIS DANIEL CHOWDHURY MD ([id number]) on 09/22/2018 8:19:22 AM Electronically Signed By: LUIS DANIEL CHOWDHURY MD 09/22/18 0819 PATIENT NAME: CAROLYN HERNANDEZ Electrocardiogram DATE OF : 45 PHYSICIAN: LUIS DANIEL CHOWDHURY MD REPORT #: [id number] REPORT IS CONFIDENTIAL AND NOT TO BE RELEASED WITHOUT AUTHORIZATION
== END 2018-09-22 03:47 | disposition home or self-care (01) ==
LOC: ED 00:52
DX: R07.9 Chest pain, unspecified (principal); J44.9 Chronic obstructive pulmonary disease, unspecified; I50.9 Heart failure, unspecified; Z87.891 Personal history of nicotine dependence; Z79.899 Other long term (current) drug therapy; Z79.82 Long term (current) use of aspirin
CPT/HCPCS: 71045; 80053; 83735; 84484; 85025; 85610; 93005; 93010; 99285-25; J7030

== ENCOUNTER 2019-06-19 15:03 | Emergency (ER) | payer MEDICARE ==
[~2019-06-19] VITALS: Ht 172.7 cm; Wt 79.4 kg
[~2019-06-19 15:03] MED LIST changes: +NEURONTIN300 MG PO
[2019-06-19] MEDS ORDERED: BISOPROLOL FUMAR5 MG PO (15:14)
[2019-06-19] MEDS ORDERED: MELATONIN3 M3 PO (15:15)
[2019-06-19] MEDS ORDERED: SPIRONOLACTONE25 MG PO (15:16)
[2019-06-19] MEDS ORDERED: SPIRIVA RESPIMAT4 GM INH (15:16)
[2019-06-19] MEDS ORDERED: TORSEMIDE10 MG PO (15:17)
--- NOTE | 2019-06-19 22:37 | EKG ---
[facility] [address] [facility] [place] [address] Signed AV dual-paced rhythm Biventricular pacemaker detected Abnormal ECG When compared with ECG of 22-SEP-2018 01:03, Electronic ventricular pacemaker has replaced Sinus rhythm Confirmed by LUIS DANIEL CHOWDHURY MD ([id number]) on 06/19/2019 10:37:43 PM Electronically Signed By: LUIS DANIEL CHOWDHURY MD 06/19/19 2237 PATIENT NAME: MARYMKCAROLYNRosie HOLT Electrocardiogram DATE OF : 45 PHYSICIAN: LUIS DANIEL CHOWDHURY MD REPORT #: [id number] REPORT IS CONFIDENTIAL AND NOT TO BE RELEASED WITHOUT AUTHORIZATION
== END 2019-06-19 19:14 | disposition home or self-care (01) ==
LOC: ED 15:03
DX: R07.89 Other chest pain (principal); J44.9 Chronic obstructive pulmonary disease, unspecified; I50.9 Heart failure, unspecified; Z87.891 Personal history of nicotine dependence; Z79.899 Other long term (current) drug therapy
CPT/HCPCS: 71045; 80053; 84484; 85025; 93005; 93010; 99285-25; J7030

== ENCOUNTER 2019-08-13 22:39 | Emergency (ER) | payer MEDICARE ==
[~2019-08-13] VITALS: Ht 172.7 cm; Wt 81.7 kg
[~2019-08-13 22:39] MED LIST changes: +BISOPROLOL FUMAR5 MG PO; +MELATONIN3 M3 PO; +SPIRIVA RESPIMAT4 GM INH; +SPIRONOLACTONE25 MG PO; +TORSEMIDE10 MG PO
[2019-08-13] MEDS ORDERED: TORSEMIDE20 MG PO (23:44)
[2019-08-13] MEDS ORDERED: TAMSULOSIN HCL0.4 MG PO (23:44)
--- NOTE | 2019-08-14 13:09 | EKG ---
[facility] [address] [facility] [place] [address] Signed AV dual-paced rhythm Biventricular pacemaker detected Abnormal ECG When compared with ECG of 19-JUN-2019 15:11, No significant change was found Confirmed by JUDE PANG DO ([id number]) on 08/14/2019 1:08:54 PM Electronically Signed By: JUDE PANG DO 08/14/19 1309 PATIENT NAME: CAROLYN HERNANDEZ Electrocardiogram DATE OF : 45 PHYSICIAN: JUDE PANG DO REPORT #: [id number] REPORT IS CONFIDENTIAL AND NOT TO BE RELEASED WITHOUT AUTHORIZATION
== END 2019-08-14 02:58 | disposition home or self-care (01) ==
LOC: ED 22:39
DX: R07.9 Chest pain, unspecified (principal); J44.9 Chronic obstructive pulmonary disease, unspecified; I50.9 Heart failure, unspecified; Z87.891 Personal history of nicotine dependence; Z88.5 Allergy status to narcotic agent; Z79.899 Other long term (current) drug therapy
CPT/HCPCS: 71045; 80053; 83735; 84484; 85025; 85610; 85730; 93005; 93010; 96374; 96375; 99285-25; J1170; J1885; J2405